=== PATIENT | female | born 1950 | race Caucasian/White ===

== ENCOUNTER 2017-06-22 06:14 | Emergency (ER) | payer OTHER ==
[2017-06-22 06:25] VITALS: BP 133/84; PULSE 86; RESP 16; TEMP 98.6; O2SAT 96
--- NOTE | 2017-06-22 06:34 | EDPHY ---
H & P Stated Complaint: SZ 45 min prior to arrival Time Seen by Provider: 06/22/17 06:30 HPI/ROS: Chief Complaint: Possible seizure HPI: 67-year-old woman with a history of advanced dementia from [facility] was being transferred here for possible tonic-clonic seizure. Per EMS report patient was being changed when she started convulsing which lasted for about a minute. Patient did seem a little bit confused thereafter. She has otherwise been in her usual state of health. Does not have a history of seizures. No falls. No recent head injuries. Patient does have a medical orders for scope of treatment indicating that she is to be DNR, comfort focus treatment only and no artificial nutrition. ROS: 10 point Review of Systems is negative except as noted in the HPI. PMH: Alzheimer's dementia, congestive heart failure, hypothyroidism, TIA, atrial fibrillation Social History: Lives in an Alzheimer's unit at [facility] Family History: non-contributory Physical Exam: Gen: Awake, Alert, nonverbal at baseline HEENT: Nose: no rhinorrhea Eyes: PERRLA, EOMI Mouth: Moist mucosa Neck: Supple, no JVD Chest: nontender, lungs clear to auscultation Heart: S1, S2 normal, no murmur Abd: Soft, non-tender, no guarding Back: no CVA tenderness, no midline tenderness Ext: no edema, non-tender Skin: no rash Neuro: CN II-XII intact, Sensation grossly intact, Strength 5/5 in bilateral upper and lower extremities - Personal History Current Tetanus/Diphtheria Vaccine: Yes Current Tetanus Diphtheria and Acellular Pertussis (TDAP): Yes - Medical/Surgical History Hx Asthma: No Hx Chronic Respiratory Disease: Yes Hx Cardiac Disease: Yes Hx Renal Disease: No Hx Cirrhosis: No Hx Alcoholism: No Hx HIV/AIDS: No Hx Splenectomy or Spleen Trauma: No Other PMH: pacemaker, alzheimers dementia, depression, TIA, sleep apnea, a.fib, obesity, osteopenia, HTN, high cholesterol, hypothyroid, - Social History Smoking Status: Unknown if ever smoked Constitutional: Initial Vital Signs Temperature (C) 37.0 C 06/22/17 06:20 Heart Rate 86 06/22/17 06:20 Respiratory Rate 16 06/22/17 06:20 Blood Pressure 133/84 H 06/22/17 06:20 O2 Sat (%) 96 06/22/17 06:20 O2 Delivery Mode Room Air Medical Decision Making ED Course/Re-evaluation: I have talked with the patient's , occurred this. He does not feel that would of been the patient's desire to be transferred to the hospital. She has indicated to him in the recent past she does not want to be poked her parotid or have any testing done. I have confirmed with him that she is for comfort measures only. He is requesting no treatment to be done or evaluation at this time and I think this is appropriate. I have spoken with the nurses at [facility] and they failed to notice the comfort focus treatment that she should not be transferred for life-sustaining treatment. They will accept her back in transfer. Departure - Departure Disposition: Home, Routine, Self-Care Clinical Impression: Seizure, Dementia Condition: Good Instructions: Dementia (ED), Epilepsy (ED) Additional Instructions: Please respect the patient's medical orders for scope of treatment that indicate that she should not be transferred to the hospital unless comfort needs cannot be met in her current location. Referrals: Patient,NotPresent [Primary Care Provider] - As per Instructions
== END 2017-06-22 07:34 | disposition home or self-care (01) ==
LOC: EDUNIT#
DX: R56.9 Unspecified convulsions (principal); F03.90 Unspecified dementia, unspecified severity, without behavioral disturbance, psychotic disturbance, mood disturbance, and anxiety; I11.0 Hypertensive heart disease with heart failure; I50.9 Heart failure, unspecified